=== PATIENT | female | born 1960 | race Caucasian/White ===

== ENCOUNTER 2019-09-17 10:07 | Outpatient (CLI) | payer OTHER ==
--- NOTE | 2019-10-01 10:27 | Mammography Report ---
Reason: ROUTINE MAMMO Procedure Date: 09/17/2019 Accession Number: [id number] / [id number] Procedure: MGS - Screening Mammo Dig Bilat CPT Code: Final Report FULL RESULT: EXAM: Screening Mammo Dig Bilat DATE: 09/17/2019 10:35 AM CLINICAL HISTORY: Screening encounter. History of late childbearing. TECHNIQUE: (B) - Bilateral CC, laterally exaggerated CC, MLO views were obtained. COMPARISON: None PARENCHYMAL PATTERN: (D) - The breast(s) demonstrate(s) heterogeneously dense fibroglandular parenchyma. FINDINGS: There is a grouping of calcifications in the left upper outer breast approximately 3.7 cm from the nipple which requires additional spot magnification views as well as ultrasound for clarification. There are no suspicious masses, calcifications, or areas of distortion in the right breast. IMPRESSION: Incomplete examination. BI-RADS category 0. RECOMMENDATION: (ADDMU) - Additional views using both Mammography and Ultrasound recommended. Left breast upper outer quadrant. BI-RADS CATEGORY: (0) - Incomplete Examination - need additional evaluation. STANDARD QUALIFYING STATEMENTS: 1. This examination was not reviewed with the aid of Computer-Aided Detection (CAD). 2. A negative or benign imaging report should not preclude biopsy if clinically suspicious findings are present. 3. Dense breasts may obscure an underlying neoplasm. 4. This examination was reviewed without the aid of 3D breast imaging (tomosynthesis).
== END 2019-09-17 10:08 | disposition home or self-care (01) ==
LOC: DI.S 10:07
DX: Z12.31 Encounter for screening mammogram for malignant neoplasm of breast (principal); R92.1 Mammographic calcification found on diagnostic imaging of breast
CPT/HCPCS: 77067

== ENCOUNTER 2020-12-02 09:45 | Outpatient (CLI) | payer OTHER ==
--- NOTE | 2020-12-03 12:45 | Mammography Report ---
BILATERAL DIGITAL DIAGNOSTIC MAMMOGRAM 3D/2D: 12/02/2020 CLINICAL: Additional evaluation requested from prior study. Routine screening. Comparison is made to exams dated: 09/17/2019 mammogram - [facility] and 04/12/2014 mammogram - [facility]. There are scattered fibroglandular elements in both breasts. There is a possible asymmetry in the right breast middle depth central to the nipple seen on the medi olateral oblique view only. This is more prominent. However, This is not confirmed on additional vie ws. There are stable loosely grouped punctate and round calcifications in the left breast central to the nipple anterior depth. No other significant masses or calcifications are seen in either breast. IMPRESSION: BENIGN There is no mammographic evidence of malignancy. Possible asymmetry in the right breast is not confirmed on additional views and represents benign fib roglandular tissue. Stable left breast calcifications are benign. Exam findings were conveyed to the patient. A 1 year screening mammogram is recommended. This exam was interpreted at Station ID: [id number]. NOTE: For mammograms, a report in lay terms will be sent to the patient. Approximately 15% of breast malignancies will not be visualized mammographically. In the management of a palpable breast mass, a negative mammogram must not discourage biopsy of a clinically suspicious lesion. Electronically Signed By: Austin Harrison M.D. slc/:12/02/2020 11:40:10 ACR BI-RADS Category 2: Benign Finding(s) 3342F PARENCHYMAL PATTERN: (A) - The breast(s) demonstrate(s) scattered fibroglandular densities. BI-RADS CATEGORY: (2) - 2 RECOMMENDATION: (ANNUAL) - Recommend routine annual screening mammography. [id number] 1 year screening LATERALITY: (B)
== END 2020-12-02 09:46 | disposition home or self-care (01) ==
LOC: DI 09:45
PROVIDERS: ATTEND Physician Assistant
DX: R92.8 Other abnormal and inconclusive findings on diagnostic imaging of breast (principal)